=== PATIENT | female | born 1980 | race Caucasian/White ===

== ENCOUNTER 2019-12-11 07:17 | Emergency (ER) | payer BC, OTHER ==
[2019-12-11 07:25] VITALS: BP 135/86; PULSE 85; RESP 17; TEMP 99.4
[2019-12-11] MEDS ORDERED: LIDOCAINE 1% INJ 10MG/ML (20 ML MDV) SQ ONE (07:34)
--- NOTE | 2019-12-11 07:39 | ED ---
Skin/Abscess/FB HPI - General Chief complaint: Skin/Abscess/Foreign Body Stated complaint: Lt shoulder pain Time Seen by Provider: 12/11/19 07:28 Source: patient Mode of arrival: ambulatory Limitations: no limitations - History of Present Illness Initial comments: Patient is a 39-year-old female presenting to emergency Department with complaints of a sore underneath her left armpit. Patient states she noticed a small pimple approximately 1-2 weeks ago that has since grown in the last 2 days have become very painful. She denies any drainage from the area. She states she's never had a feeling like this before. She denies any fever, chills, nausea, vomiting. She has no further complaints at this time. Upon arrival to the ER, her vitals are stable. - Related Data Home Medications Medication Instructions Recorded Confirmed Pnv,Calcium 72/Iron/Folic Acid 1 tab PO DAILY 05/13/15 05/15/15 [ Plus Tablet] Previous Rx's Medication Instructions Recorded Acetaminophen-Codeine 300-30mg 2 tab PO Q6H PRN #30 tablet 05/17/15 [Tylenol #3] Allergies Allergy/AdvReac Type Severity Reaction Status Date / Time Penicillins Allergy Rash/Hives Verified 12/11/19 07:25 Review of Systems ROS Statement: Those systems with pertinent positive or pertinent negative responses have been documented in the HPI. ROS Other: All systems not noted in ROS Statement are negative. Past Medical History Past Medical History: No Reported History History of Any Multi-Drug Resistant Organisms: None Reported Past Surgical History: Section Past Anesthesia/Blood Transfusion Reactions: No Reported Reaction Past Psychological History: No Psychological Hx Reported Smoking Status: Never smoker Past Alcohol Use History: None Reported Past Drug Use History: None Reported - Past Family History Mother Family Medical History: Diabetes Mellitus, Hyperlipidemia General Exam - General Exam Comments Initial Comments: GENERAL: Patient is well-developed and well-nourished. Patient is nontoxic and in no acute distress. HEAD: Atraumatic, normocephalic. EYES: Pupils equal round and reactive to light, extraocular movements intact, sclera anicteric, conjunctiva are normal. Eyelids were unremarkable. ENT: Nares patent, oropharynx clear without exudates. Moist mucous membranes. NECK: Normal range of motion, supple without lymphadenopathy or JVD. LUNGS: Unlabored respirations. Breath sounds clear to auscultation bilaterally and equal. No wheezes rales or rhonchi. HEART: Regular rate and rhythm without murmurs, rubs or gallops. ABDOMEN: Soft, nontender, normoactive bowel sounds. No guarding, no rebound. No masses appreciated. : Deferred MUSCULOSKELETAL: Normal extremities with adequate strength and normal range of motion, no pitting or edema. No clubbing or cyanosis. NEUROLOGICAL: Patient is alert and oriented x 3. Normal speech, normal gait. PSYCH: Normal mood, normal affect. SKIN: Warm, Dry, normal turgor, no rashes. Patient has a small 0.5 cm x 1 cm abscess in the left armpit. There is no surrounding erythema. There is some mild fluctuance to the area as well as mild induration. Limitations: no limitations Course Vital Signs 12/11/19 07:23 Temperature 99.4 F Pulse Rate 85 Respiratory 17 Rate Blood Pressure 135/86 O2 Sat by Pulse 97 Oximetry Procedures - Incision & Drainage Consent Obtained: verbal consent, written consent Indication: Abscess Site: upper extremity (Left underarm) Size (cm): 1 Anesthetic Used: lidocaine 1% Amount (mLs): 2 I&D Cleaning Method: Alcohol Wipe Scalpel Used: #11 Needle Aspiration Performed?: No Irrigation Performed?: No I&D Drainage Obtained: Pus, Blood Patient Tolerated Procedure: well Medical Decision Making - Medical Decision Making Patient is a 39-year-old female presenting with a small abscess on her left armpit. Her vitals are stable, afebrile. There is no significant surrounding erythema to indicate further cellulitis. I did perform an I&D the left underarm wishes reveal a large amount of purulent drainage. Patient will continue with warm compresses to the area. She may use topical antibiotic. No shaving until area is healed. Patient is stable for discharge and she is in agreement this plan of care. Disposition Clinical Impression: Abscess of left axilla Disposition: HOME SELF-CARE Condition: Stable Instructions (If sedation given, give patient instructions): Abscess Incision and Drainage (ED) Additional Instructions: Please return to the Emergency Department if symptoms worsen or any other concerns. Apply warm compresses to the underarm, keep area clean and dry. Is patient prescribed a controlled substance at d/c from ED?: No Referrals: Nguyễn Anderson MD [Primary Care Provider] - 1-2 days
== END 2019-12-11 08:12 | disposition home or self-care (01) ==
LOC: EC 07:17
DX: L02.412 Cutaneous abscess of left axilla (principal); Z88.0 Allergy status to penicillin
CPT/HCPCS: 99283; 10060; J2001

== ENCOUNTER 2019-12-13 01:30 | Emergency (ER) | payer OTHER ==
[2019-12-13 01:37] VITALS: BP 147/96; PULSE 114; RESP 20; TEMP 99.2
[2019-12-13] MEDS ORDERED: HYDROcodone/APAP 5-325MG 1 EACH TAB PO STA (02:03)
[2019-12-13] MEDS ORDERED: IBUPROFEN 800 MG TAB PO STA (02:03)
[2019-12-13] MEDS ORDERED: LIDOCAINE 1%-EPI 1:100,000 20 ML VIAL SQ STA (02:04)
[2019-12-13] MEDS ORDERED: traMADol 50 MG STARTER PACK 3 TAB BTL PO STA (02:04)
--- NOTE | 2019-12-13 02:05 | ED ---
Recheck HPI - General Chief Complaint: Skin/Abscess/Foreign Body Stated Complaint: Left shoulder pain Time Seen by Provider: 12/13/19 01:56 Source: patient, RN notes reviewed, old records reviewed Mode of arrival: ambulatory Limitations: no limitations - History of Present Illness Initial Comments: This is a 39-year-old female who is eating ER recently for evaluation of abscess abscess was cot and drained. Patient states symptoms are progressively worsened no cervical significant starting cellulitis or fever which is increasing pain in the left axilla. Patient has otherwise no significant history of similar results. Patient started on antibiotics yesterday MD Complaint: wound re-check -: days(s) Initial Visit For: cellulitis, abscess Returns Today for: wound recheck Symptoms Since Prior Visit: worsening swelling, worsening redness, worsening discharge Treatments Prior to Arrival: Given Antibiotics on - Related Data Home Medications Medication Instructions Recorded Confirmed Pnv,Calcium 72/Iron/Folic Acid 1 tab PO DAILY 05/13/15 05/15/15 [ Plus Tablet] Previous Rx's Medication Instructions Recorded Acetaminophen-Codeine 300-30mg 2 tab PO Q6H PRN #30 tablet 05/17/15 [Tylenol #3] Sulfamethox-Tmp 800-160Mg [Bactrim 2 tab PO BID #40 tab 12/13/19 DS 800-160 mg] Allergies Allergy/AdvReac Type Severity Reaction Status Date / Time Penicillins Allergy Rash/Hives Verified 12/13/19 01:37 Review of Systems ROS Statement: Those systems with pertinent positive or pertinent negative responses have been documented in the HPI. ROS Other: All systems not noted in ROS Statement are negative. Past Medical History Past Medical History: No Reported History History of Any Multi-Drug Resistant Organisms: None Reported Past Surgical History: Section Past Anesthesia/Blood Transfusion Reactions: No Reported Reaction Past Psychological History: No Psychological Hx Reported Smoking Status: Never smoker Past Alcohol Use History: None Reported Past Drug Use History: None Reported - Past Family History Mother Family Medical History: Diabetes Mellitus, Hyperlipidemia General Exam - General Exam Comments Initial Comments: left axillary abscess Limitations: no limitations General appearance: alert, in no apparent distress Head exam: Present: atraumatic, normocephalic, normal inspection Eye exam: Present: normal appearance, PERRL, EOMI. Absent: scleral icterus, conjunctival injection, periorbital swelling ENT exam: Present: normal exam, mucous membranes moist Neck exam: Present: normal inspection. Absent: tenderness, meningismus, lymphadenopathy Respiratory exam: Present: normal lung sounds bilaterally. Absent: respiratory distress, wheezes, rales, rhonchi, stridor Cardiovascular Exam: Present: normal rhythm, tachycardia, normal heart sounds. Absent: systolic murmur, diastolic murmur, rubs, gallop, clicks GI/Abdominal exam: Present: soft, normal bowel sounds. Absent: distended, tenderness, guarding, rebound, rigid Extremities exam: Present: normal inspection, full ROM, normal capillary refill. Absent: tenderness, pedal edema, joint swelling, calf tenderness Back exam: Present: normal inspection Neurological exam: Present: alert, oriented X3, CN II-XII intact Psychiatric exam: Present: normal affect, normal mood Skin exam: Present: warm, dry, intact, normal color. Absent: rash Course Vital Signs 12/13/19 01:33 Temperature 99.2 F Pulse Rate 114 H Respiratory 20 Rate Blood Pressure 147/96 O2 Sat by Pulse 96 Oximetry - Reevaluation(s) Reevaluation #1: Medical record is reviewed Patient symptoms are resolved Patient informed results were discharge Procedures - Incision & Drainage Consent Obtained: verbal consent Site: other (Left axilla) Anesthetic Used: lidocaine 1%, with epi I&D Cleaning Method: Betadine Sterile Field Used?: Yes Scalpel Used: #11 Needle Aspiration Performed?: No Irrigation Performed?: No I&D Drainage Obtained: Pus Culture Obtained?: No Patient Tolerated Procedure: well Medical Decision Making - Medical Decision Making 39-year-old female DEL with recurrent left axillary abscess. Abscesses drained here in the ER with significant purulent drainage put back on antibiotics and patient can be discharged home Disposition Clinical Impression: Abscess of left axilla Disposition: HOME SELF-CARE Condition: Good Instructions (If sedation given, give patient instructions): Abscess Incision and Drainage (ED) Prescriptions: Sulfamethox-Tmp 800-160Mg [Bactrim DS 800-160 mg] 2 tab PO BID #40 tab Is patient prescribed a controlled substance at d/c from ED?: No Referrals: Nguyễn Anderson MD [Primary Care Provider] - 1-2 days
[2019-12-13] MEDS ORDERED: SULFAMETH-TMP DS STARTER PACK 2 TAB BTL PO STA (02:26)
[2019-12-13] MEDS ORDERED: SULFAMETHOX-TMP 800-160MG 1 EACH TAB PO STA (02:26)
== END 2019-12-13 02:50 | disposition home or self-care (01) ==
LOC: EC 01:30
DX: L02.412 Cutaneous abscess of left axilla (principal); Z88.0 Allergy status to penicillin
CPT/HCPCS: 10060; 99284

== ENCOUNTER → 2021-01-03 | Outpatient (CLI) | payer OTHER ==
--- NOTE | 2021-01-07 09:30 | MM ---
Reason for exam: screening (asymptomatic). Baseline mammogram. History: Patient had first child at age 32. Taking hormonal contraceptives for 16 years. Physical Findings: Nurse did not find any significant physical abnormalities on exam. MG Screening Mammo w CAD Bilateral CC and MLO view(s) were taken. The breast tissue is heterogeneously dense. This may lower the sensitivity of mammography. Focal asymmetries right breast suspected to represent superimposition shadow. Further evaluation recommended. ASSESSMENT: Incomplete: need additional imaging evaluation, BI-RAD 0 RECOMMENDATION: Special view mammogram of the right breast. (3D) If lesion persists on supplemental views, image directed ultrasound is recommended. [facility] will attempt to contact patient to return for supplemental views and ultrasound if indicated.
== END | disposition home or self-care (01) ==
LOC: RADMAMWWP 14:03
PROVIDERS: ATTEND Obstetrics & Gynecology
DX: Z12.31 Encounter for screening mammogram for malignant neoplasm of breast (principal)
CPT/HCPCS: 77067

== ENCOUNTER → 2021-01-09 | Outpatient (CLI) | payer OTHER ==
--- NOTE | 2021-01-10 12:21 | MM ---
Reason for exam: additional evaluation requested from abnormal screening. Last mammogram was performed less than 1 month ago. History: Patient had first child at age 32. Taking hormonal contraceptives for 16 years. Physical Findings: Breast exam preformed at baseline screening. MG Work Up Mamm w CAD RT CC and MLO view(s) were taken of the right breast. Prior study comparison: January 03, 2021, bilateral MG screening mammo w CAD. The breast tissue is heterogeneously dense. This may lower the sensitivity of mammography. Area's of asymmetric densities either persist or partially disperses. Further ultrasound evaluation recommended. These results were verbally communicated with the patient and result sheet given to the patient on 01/09/21. ASSESSMENT: Incomplete: need additional imaging evaluation, BI-RAD 0 RECOMMENDATION: Ultrasound of the right breast. (right superior half)
--- NOTE | 2021-01-10 12:22 | USB ---
Reason for exam: additional evaluation requested from abnormal screening. History: Patient had first child at age 32. Taking hormonal contraceptives for 16 years. US Breast Workup Limited RT Right limited breast ultrasound including focal area of concern, retroareolar and axilla demonstrates a 0.5 x 0.4 x 0.4cm cystic, benign lesion at 11 o'clock. An area of dense tissue noted in the upper outer quadrant. Scanned 9-3 o'clock. These results were verbally communicated with the patient and result sheet given to the patient on 01/09/21. ASSESSMENT: Probably benign, BI-RAD 3 RECOMMENDATION: Follow-up diagnostic mammogram of the right breast in 6 months.
== END | disposition home or self-care (01) ==
LOC: RADMAMWWP 14:09
PROVIDERS: ATTEND Obstetrics & Gynecology
DX: R92.2 Inconclusive mammogram (principal)
CPT/HCPCS: 77065

== ENCOUNTER → 2022-05-29 | Outpatient (CLI) | payer OTHER ==
--- NOTE | 2022-05-29 08:55 | MM ---
Reason for Exam: Additional evaluation requested from prior study. Last mammogram was performed 1 year(s) and 5 month(s) ago. Patient History: Menarche at age 10. First Full-Term at age 32. Late child-bearing (after 30). Patient has history of breast feeding. Patient used Hormonal Contraceptives for 16 years. Last menstrual period: 05/27/2022 Risk Values: Haley 5 year model risk: 1.0%. NCI Lifetime model risk: 14.6%. Prior Study Comparison: 01/03/2021 Bilateral Screening Mammogram, [facility]. 01/09/2021 Right Diagnostic Mammogram, [facility]. Tissue Density: The breast tissue is heterogeneously dense. This may lower the sensitivity of mammography. Findings: Analyzed By CAD. No new suspicious calcifications or masses within either breast. Similar focal asymmetries within the right breast consistent with islands of dense tissue. Overall Assessment: Benign, BI-RAD 2 Management: Screening Mammogram of both breasts in 1 year. A clinical breast exam by your physician is recommended on an annual basis and results should be correlated with mammographic findings. This exam should not preclude additional follow-up of suspicious palpable abnormalities. Results were given to the patient verbally at the time of exam. Electronically signed and approved by: Jaison Rebolledo D.O.
== END | disposition home or self-care (01) ==
LOC: RADMAMWWP 08:11
PROVIDERS: ATTEND Family Medicine
DX: R92.8 Other abnormal and inconclusive findings on diagnostic imaging of breast (principal)
CPT/HCPCS: 77062; 77066

== ENCOUNTER → 2023-06-04 | Outpatient (CLI) | payer OTHER ==
--- NOTE | 2023-06-08 13:14 | MM ---
Reason for Exam: Screening (asymptomatic). Last screening mammogram was performed 12 month(s) ago. Patient History: Menarche at age 10. First Full-Term at age 32. Late child-bearing (after 30). Premenopausal. Patient has history of breast feeding. Patient used Hormonal Contraceptives for 16 years. Last menstrual period: 05/20/2023 Risk Values: Haley 5 year model risk: 1.1%. NCI Lifetime model risk: 14.4%. Prior Study Comparison: 01/03/2021 Bilateral Screening Mammogram, [facility]. 01/09/2021 Right Diagnostic Mammogram, [facility]. 05/29/2022 Bilateral MG 3D diag mammo w/cad [facility], [facility]. Tissue Density: The breast tissue is heterogeneously dense. This may lower the sensitivity of mammography. Findings: Analyzed By CAD. There is no suspicious group of microcalcifications or new suspicious mass. Overall Assessment: Negative, BI-RAD 1 Management: Screening Mammogram of both breasts in [address] [facility] will attempt to contact patient to return for supplemental views and ultrasound if indicated. Patient should continue monthly self-breast exams. A clinical breast exam by your physician is recommended on an annual basis. This exam should not preclude additional follow-up of suspicious palpable abnormalities. Note on Haley scores and lifetime risk: 1. A Haley score greater than 3% is considered moderate risk. If this is the case, consider specialist referral to assess eligibility for a risk reducing agent. 2. If overall lifetime risk for the development of breast cancer is 20% or higher, the patient may qualify for future screening with alternating mammogram and breast MRI. Electronically signed and approved by: Kodi Marin DO
== END | disposition home or self-care (01) ==
LOC: RADMAMWWP 15:08
PROVIDERS: ATTEND Family Medicine
DX: Z12.31 Encounter for screening mammogram for malignant neoplasm of breast (principal)
CPT/HCPCS: 77063; 77067

== ENCOUNTER → 2024-09-15 | Outpatient (CLI) | payer OTHER ==
--- NOTE | 2024-09-15 09:09 | MM ---
Reason for Exam: Screening (asymptomatic). Last mammogram was performed 1 year(s) and 3 month(s) ago. Patient History: Menarche at age 10. First Full-Term at age 32. Late child-bearing (after 30). Premenopausal. Patient has history of breast feeding. Patient used Hormonal Contraceptives for 16 years. Maternal cousin had breast cancer, age 40. Risk Values: Haley 5 year model risk: 1.2%. NCI Lifetime model risk: 14.2%. Prior Study Comparison: 01/09/2021 Right Diagnostic Mammogram, [facility]. 05/29/2022 Bilateral MG 3D diag mammo w/cad [facility], [facility]. 06/04/2023 Bilateral MG 3D screening mammo w/cad, [facility]. Tissue Density: The breasts are heterogeneously dense, which may obscure small masses. Findings: Analyzed By CAD. There is no suspicious group of microcalcifications or new suspicious mass in either breast. Overall Assessment: Negative, BI-RAD 1 Management: Screening Mammogram of both breasts in 1 year. . Patient should continue monthly self-breast exams. A clinical breast exam by your physician is recommended on an annual basis. This exam should not preclude additional follow-up of suspicious palpable abnormalities. Note on Haley scores and lifetime risk: 1. A Haley score greater than 3% is considered moderate risk. If this is the case, consider specialist referral to assess eligibility for a risk reducing agent. 2. If overall lifetime risk for the development of breast cancer is 20% or higher, the patient may qualify for future screening with alternating mammogram and breast MRI. [facility], , 09/15/2024 9:06 AM. Electronically signed and approved by: Curt Correa M.D. [facility]
== END | disposition home or self-care (01) ==
LOC: RADMAMWWP 08:38
PROVIDERS: ATTEND Family Medicine
DX: Z12.31 Encounter for screening mammogram for malignant neoplasm of breast (principal); R92.333 Mammographic heterogeneous density, bilateral breasts; Z92.0 Personal history of contraception; Z80.3 Family history of malignant neoplasm of breast
CPT/HCPCS: 77063; 77067